=== PATIENT | female | born 1935 | race Caucasian/White ===

== ENCOUNTER 2020-10-15 10:36 | Outpatient (RCR) | payer MEDICARE ==
[~2020-10-15 10:36] MED LIST: LIDOCAINE/PRILOCAINE 2.5-2.5% KIT ONE; MUPIROCIN 2% OINT 22 GM TUBE ONE
== END 2020-11-04 ==
LOC: EDBD → WCC 10:36
PROVIDERS: ATTEND Family Medicine Adult Medicine
DX: I82.402 Acute embolism and thrombosis of unspecified deep veins of left lower extremity (principal); I82.401 Acute embolism and thrombosis of unspecified deep veins of right lower extremity; L97.821 Non-pressure chronic ulcer of other part of left lower leg limited to breakdown of skin; I83.12 Varicose veins of left lower extremity with inflammation; I83.11 Varicose veins of right lower extremity with inflammation; L03.119 Cellulitis of unspecified part of limb; R60.0 Localized edema; G90.09 Other idiopathic peripheral autonomic neuropathy; L84 Corns and callosities; I10 Essential (primary) hypertension; X58.XXXA Exposure to other specified factors, initial encounter

== ENCOUNTER 2020-12-03 13:20 | Outpatient (RCR) | payer MEDICARE | END 2020-12-05 | LOC: WCC 13:20 | PROVIDERS: ATTEND Family Medicine Adult Medicine | DX: I82.401 Acute embolism and thrombosis of unspecified deep veins of right lower extremity (principal); I82.402 Acute embolism and thrombosis of unspecified deep veins of left lower extremity; L03.119 Cellulitis of unspecified part of limb; L97.821 Non-pressure chronic ulcer of other part of left lower leg limited to breakdown of skin; I83.11 Varicose veins of right lower extremity with inflammation; I83.12 Varicose veins of left lower extremity with inflammation; I89.0 Lymphedema, not elsewhere classified; R60.0 Localized edema; G90.09 Other idiopathic peripheral autonomic neuropathy; L84 Corns and callosities; I10 Essential (primary) hypertension; X58.XXXA Exposure to other specified factors, initial encounter ==

== ENCOUNTER 2020-12-17 12:37 | Outpatient (RCR) | payer MEDICARE ==
[2020-12-17] MEDS ORDERED: FLUOCINONIDE 0.05% 1 EA/15 GM TUBE ONE (13:05)
[2020-12-17] MEDS ORDERED: TRYPSIN/BALSAM PERU/CASTOR OIL ONE (13:05)
== END 2021-01-05 ==
LOC: WCC 12:37
PROVIDERS: ATTEND Family Medicine Adult Medicine
DX: I82.401 Acute embolism and thrombosis of unspecified deep veins of right lower extremity (principal); I82.402 Acute embolism and thrombosis of unspecified deep veins of left lower extremity; L03.119 Cellulitis of unspecified part of limb; I83.11 Varicose veins of right lower extremity with inflammation; I83.12 Varicose veins of left lower extremity with inflammation; I89.0 Lymphedema, not elsewhere classified; R60.0 Localized edema; L84 Corns and callosities; G90.09 Other idiopathic peripheral autonomic neuropathy; I10 Essential (primary) hypertension; X58.XXXA Exposure to other specified factors, initial encounter